=== PATIENT | male | born 1960 | race Caucasian/White ===

== ENCOUNTER 2019-06-04 21:48 | Emergency (ER) | payer OTHER ==
[~2019-06-04] VITALS: Ht 187.9 cm; Wt 81.8 kg
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
[2019-06-04] MEDS ORDERED: IBUPROFEN 800 MG (MOTRIN) TAB PO STA (22:13)
[2019-06-04] MEDS ORDERED: IBUP-1780 PO (22:44)
[2019-06-04 22:46] VITALS: BP 156/68
--- NOTE | 2019-06-05 05:45 | Diagnostic Imaging Report ---
EXAMINATION: Right shoulder at 1001 PM INDICATION: Shoulder pain Three views were obtained. There are no prior studies available for comparison. There is no fracture, dislocation or acute bony abnormality evident. There is moderate degenerative disease of the glenohumeral and acromioclavicular joints. The soft tissues are unremarkable. Incidental note is made of healed displaced fractures of the right 5th and 6th ribs. IMPRESSION: There is no evidence for an acute bony abnormality. Dictated by: Dictated on workstation # [id number]
== END 2019-06-04 22:46 | disposition home or self-care (01) ==
LOC: ER FS 21:50
DX: S46.911A Strain of unspecified muscle, fascia and tendon at shoulder and upper arm level, right arm, initial encounter (principal); G89.29 Other chronic pain; Z87.828 Personal history of other (healed) physical injury and trauma; X58.XXXA Exposure to other specified factors, initial encounter
CPT/HCPCS: 73030

== ENCOUNTER 2019-06-19 21:20 | Emergency (ER) | payer OTHER ==
[~2019-06-19] VITALS: Ht 190.5 cm; Wt 77.0 kg
[~2019-06-19 21:20] MED LIST: IBUP-1780 PO
[2019-06-19] MEDS ORDERED: FAMOTIDINE 20MG/2ML IV (PEPCID) IV STA (21:40)
[2019-06-19] MEDS ORDERED: LIDOCAINE 2% VISCOUS 15 ML UDC PO ONE (21:45)
[2019-06-19] MEDS ORDERED: ONDANSETRON 4 MG/2 ML (SDV) Z0FRAN IVP ONE (21:45)
[2019-06-19] MEDS ORDERED: ANTACID SUSP 30 ML UDC (MYLANTA) PO ONE (21:45)
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
[2019-06-19 21:58] LABS: BASOPHILS % (AUTO) 0 % (0-10); EOSINOPHILS % (AUTO) 2 % (0-10); HEMATOCRIT 44 % (40-54); HEMOGLOBIN 14.3 G/DL (13.3-17.7); LYMPHOCYTES % (AUTO) 16 % (12-44); MEAN CORPUSCULAR HEMOGLOBIN 29 PG (25-34); MEAN CORPUSCULAR HGB CONC 33 G/DL (32-36); MEAN CORPUSCULAR VOLUME 90 FL (80-99); MEAN PLATELET VOLUME 10.5 FL (7.4-10.4); MONOCYTES % (AUTO) 7 % (0-12); NEUTROPHILS % (AUTO) 74 % (42-75); PLATELET COUNT 320 10^3/uL (130-400); WHITE BLOOD COUNT 10.4 10^3/uL (4.3-11.0)
[2019-06-19 21:59] LABS: EOSINOPHILS # (AUTO) 0.2 10^3/uL (0.0-0.3); LYMPHOCYTES # (AUTO) 1.7 X 10^3 (1.0-4.0); MONOCYTES # (AUTO) 0.8 X 10^3 (0.0-1.0); NEUTROPHILS # (AUTO) 7.7 X 10^3 (1.8-7.8)
[2019-06-19 22:11] LABS: BACTERIA,URINE NEGATIVE /HPF; BILIRUBIN,URINE NEGATIVE (NEGATIVE); CLARITY,URINE CLEAR; COLOR,URINE YELLOW; GLUCOSE, URINE (UA) NEGATIVE (NEGATIVE); KETONES,URINE NEGATIVE (NEGATIVE); LEUKOCYTE ESTERASE ,URINE NEGATIVE (NEGATIVE); NITRITE,URINE NEGATIVE (NEGATIVE); PH,URINE 7.5 (5-9); PROTEIN,URINE NEGATIVE (NEGATIVE)
[2019-06-19 22:12] LABS: BILIRUBIN,TOTAL 0.3 MG/DL (0.1-1.0); CALCIUM 9.6 MG/DL (8.5-10.1); CARBON DIOXIDE 28 MMOL/L (21-32); CHLORIDE 104 MMOL/L (98-107); GLUCOSE 118 MG/DL (70-105); POTASSIUM 4.7 MMOL/L (3.6-5.0); SODIUM 144 MMOL/L (135-145); TOTAL PROTEIN 7.4 GM/DL (6.4-8.2)
[2019-06-19 22:13] LABS: BUN/CREATININE RATIO 16; CREATININE SERUM 0.86 MG/DL (0.60-1.30); GFR ESTIMATED > 60
[2019-06-19 22:14] LABS: ALANINE AMINOTRANSFERASE 22 U/L (0-55); ALBUMIN 4.4 GM/DL (3.2-4.5); ALKALINE PHOSPHATASE 92 U/L (40-136); LIPASE 40 U/L (8-78)
[2019-06-19] MEDS ORDERED: ONDA4TAB11 PO (22:27)
[2019-06-19] MEDS ORDERED: SUCR1TAB36 PO (22:27)
[2019-06-19] MEDS ORDERED: OMEP40CA36 PO (22:27)
[2019-06-19] MEDS ORDERED: KETOROLAC 30 MG/ML VIAL IVP ONE (22:30)
[2019-06-19 22:36] VITALS: BP 151/80
== END 2019-06-19 22:36 ==
LOC: EDUNIT# 21:20 → ER FS 21:21
DX: K29.70 Gastritis, unspecified, without bleeding (principal); J43.9 Emphysema, unspecified; F17.210 Nicotine dependence, cigarettes, uncomplicated
CPT/HCPCS: 36415; 80053; 81000; 83690; 85025

== ENCOUNTER 2019-07-08 02:54 | Emergency (ER) | payer MEDICAID, OTHER ==
[~2019-07-08] VITALS: Ht 190 cm; Wt 76.3 kg
[~2019-07-08 02:54] MED LIST changes: +OMEP40CA36 PO; +ONDA4TAB11 PO; +SUCR1TAB36 PO
[2019-07-08] MEDS ORDERED: KETOROLAC 60 MG/2 ML VIAL IM ONE (03:15)
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
[2019-07-08] MEDS ORDERED: RT-ALBUINH INH (03:42)
[2019-07-08] MEDS ORDERED: CYCL10TA9 PO (03:42)
[2019-07-08] MEDS ORDERED: HYDR-4226 PO (03:42)
[2019-07-08 03:52] VITALS: BP 130/88
--- NOTE | 2019-07-08 07:38 | Diagnostic Imaging Report ---
INDICATION: Pain. COMPARISON: None available. TECHNIQUE: 5 radiographs of the thoracic spine dated 07/08/2019. FINDINGS: Postsurgical changes are noted about the thoracolumbar junction with bilateral posterior pedicle screws in place without evidence of hardware complication. Chronic compression within the lower thoracic spine is noted, which is being spanned by the postsurgical changes. Vertebral body heights are otherwise well-maintained. Alignment of the thoracic spine is well maintained. Mild multilevel disc space height loss without severe disc space height loss. Mild degenerative changes noted within the partially visualized cervical spine. No acute fracture. No suspicious radiopaque foreign body. IMPRESSION: Postsurgical changes about the thoracolumbar junction fusing a chronically compressed vertebral body without evidence of hardware complication. No acute osseous abnormality with mild degenerative changes. Dictated by: Dictated on workstation # [id number]
== END 2019-07-08 03:52 | disposition home or self-care (01) ==
LOC: EDUNIT# 02:54 → ER FS 02:56
DX: M54.6 Pain in thoracic spine (principal); J43.9 Emphysema, unspecified; Z87.828 Personal history of other (healed) physical injury and trauma; Z98.890 Other specified postprocedural states; Z77.22 Contact with and (suspected) exposure to environmental tobacco smoke (acute) (chronic); X50.0XXA Overexertion from strenuous movement or load, initial encounter
CPT/HCPCS: 72072

== ENCOUNTER 2020-04-18 14:04 | Emergency (ER) | payer SELFPAY ==
[~2020-04-18 14:04] MED LIST changes: +CYCL10TA9 PO; +HYDR-4226 PO; +OMEP40CA27 PO; -OMEP40CA36 PO; +RT-ALBUINH INH
[2020-04-18] MEDS ORDERED: TETRACAINE 0.5% OPHTH SOLN 4 ML BTL (SINGLE DOSE ONLY) ONE (14:17)
== END 2020-04-18 14:32 | disposition home or self-care (01) ==
LOC: EDUNIT# 14:04 → ER FS 14:05
DX: T15.02XA Foreign body in cornea, left eye, initial encounter (principal); X58.XXXA Exposure to other specified factors, initial encounter
CPT/HCPCS: 99283

== ENCOUNTER 2020-09-20 20:55 | Emergency (ER) | payer SELFPAY ==
[~2020-09-20] VITALS: Ht 187.9 cm; Wt 75.2 kg
[2020-09-20] MEDS ORDERED: RX-ALBUTEROL INHALER (VENTOLIN HFA) 18 GM IH PRN (21:15)
[2020-09-20] MEDS ORDERED: RT-ALBUINH INH (21:20)
[2020-09-20] MEDS ORDERED: PRD20T PO (21:20)
--- NOTE | 2020-09-20 21:20 | ED Respiratory ---
General Chief Complaint: Respiratory Problems Stated Complaint: SOA Source: patient History of Present Illness Date Seen by Provider: Sep 20, 2020 Time Seen by Provider: 20:57 Initial Comments 60 yo male presenting with cough and shortness of breath. He reports he has a history of COPD and emphysema. He has not had an inhaler for over 6 months. He denies any fever or chills. He has no color to the mucus he is coughing up now. He denies coughing up more sputum than usual. He came in because he was having more shortness of breath than usual and describes increased sinus drainage. He continues to smoke at least 1/2 ppd. Timing/Duration: intermittent Severity: moderate Prior Episodes/Possible Cause: chronic episodes Modifying Factors: Improves With Albuterol Inhaler; Worse With Lying Down Associated Symptoms: No chest pain/soreness; cough; No dizziness, No earache, No facial pain, No fever/chills, No headache, No lightheadedness, No muscle aches; nasal congestion; No nasal drainage; shortness of breath; No sinus infection, No sore throat; wheezing Allergies and Home Medications Allergies Coded Allergies: No Known Drug Allergies (Unverified , 06/04/19) Home Medications Albuterol Sulfate 1 Puff Puff, 2 PUFF INH Q4H 1 PUFF = 90 MCG Prescribed by: VALENTIN CAMPOS on 07/08/19341 Albuterol Sulfate 1 Puff Puff, 2 PUFF INH Q6H PRN for WHEEZING 1 PUFF = 90 MCG Prescribed by: LELO ARORA on 09/20/202119 Cyclobenzaprine HCl 10 Mg Tablet, 10 MG PO Q6H Prescribed by: VALENTIN CAMPOS on 07/08/19341 Hydrocodone/Acetaminophen 1 Each Tablet, 1 TAB PO Q4-6HR Prescribed by: VALENTIN CAMPOS on 07/08/19341 Ibuprofen 800 Mg Tablet, 800 MG PO Q8H PRN for PAIN Prescribed by: LELO ARORA on 06/04/192243 Omeprazole 40 Mg Capsule.dr, 40 MG PO DAILY Prescribed by: POLI LUDWIG on 06/19/192226 Ondansetron 4 Mg Tab.rapdis, 4 MG PO Q6H PRN for NAUSEA/VOMITING Prescribed by: POLI LUDWIG on 10/20/19 2227 Prednisone 20 Mg Tab, 40 MG PO DAILY Prescribed by: LELO ARORA on 09/20/202119 Sucralfate 1 Gm Tablet, 1 GM PO QIDACHS Prescribed by: POLI LUDWIG on 06/19/192226 Patient Home Medication List Home Medication List Reviewed: Yes Review of Systems Review of Systems Constitutional: No chills, No fever EENTM: see HPI Respiratory: see HPI Cardiovascular: no symptoms reported Gastrointestinal: no symptoms reported Genitourinary: no symptoms reported Skin: no symptoms reported Psychiatric/Neurological: No Symptoms Reported Hematologic/Lymphatic: No Symptoms Reported Past Dnzsggr-Wrbred-Kdxmwk Hx Past Med/Social Hx: Reviewed Nursing Past Med/Soc Hx Patient Social History Drug of Choice: marijuana, METH Type Used: Cigarettes 2nd Hand Smoke Exposure: Yes Recent Hopitalizations: No Seasonal Allergies Seasonal Allergies: No Past Medical History Surgeries: Yes (BACK SURGERY 2 YEARS AGO) Orthopedic Respiratory: Yes Emphysema Cardiac: No Neurological: No Genitourinary: No Gastrointestinal: No Musculoskeletal: Yes Chronic Back Pain Endocrine: No HEENT: No Cancer: No Psychosocial: No Integumentary: No Blood Disorders: No Physical Exam Vital Signs - First Documented 09/20/20 20:55 Temp 36.9 Pulse 88 Resp 24 B/P (MAP) 143/79 (100) Pulse Ox 97 O2 Delivery Room Air Capillary Refill : Height: '" Weight: lbs. oz. kg; 21.00 BMI Method: General Appearance: WD/WN, no apparent distress HEENT: PERRL/EOMI, pharynx normal Neck: non-tender, supple Respiratory: chest non-tender, no respiratory distress, no accessory muscle use, decreased breath sounds, wheezing (expiratory wheezing and prolonged expirations) Cardiovascular: normal peripheral pulses, regular rate, rhythm Neurologic/Psychiatric: alert, normal mood/affect, oriented x 3 Skin: normal color, warm/dry Progress/Results/Core Measures Suspected Sepsis SIRS Temperature: Pulse: Respiratory Rate: Blood Pressure / Mean: Results/Orders My Orders Orders - LELO ARORA MD Rx-Albuterol Inhaler (Rx-Ventolin Hfa) (09/20/20 21:15) Vital Signs/I&O 09/20/20 09/20/20 20:55 21:38 Temp 36.9 36.9 Pulse 88 84 Resp 24 24 B/P (MAP) 143/79 (100) 91/61 (100) Pulse Ox 97 97 O2 Delivery Room Air Room Air Capillary Refill : Progress Note : Progress Note with no fever, increased color or mucus production and oxygen saturations in 96- 98% range will refill albuterol and give steroid burst to treat for copd exacerbation. Give him a spacer to use with inhaler and education on that. Encouraged to quit smoking. Departure Impression Primary Impression: COPD with exacerbation Additional Impression: Tobacco abuse Disposition: 01 HOME, SELF-CARE Condition: Stable Departure-Patient Inst. Decision time for Depature: 21:20 Referrals: OLENA PEREZ MD (PCP/Family) Primary Care Physician Patient Instructions: COPD Exacerbation, Adult ED, How to Use Your Metered Dose Inhaler (Adults), How to Use a Spacer, Quitting Smoking, SMOKING CESSATION Add. Discharge Instructions: Use inhaler with spacer 2 puffs every 6 hours as needed for shortness of breath/wheezing. Take the steroids to help with cough and congestion. Quit smoking and using tobacco Follow up with clinic to continue getting help with medicine and refills of medicine for COPD/Emphysema All discharge instructions reviewed with patient and/or family. Voiced understanding. Scripts Prednisone (Prednisone) 20 Mg Tab 40 MG PO DAILY for COPD Exacerbation for 5 Days, #10 TAB 0 Refills Prov: LELO ARORA MD 09/20/20 Albuterol Sulfate (VENTOLIN HFA) 1 Puff Puff 2 PUFF INH Q6H PRN for WHEEZING for 30 Days, #1 INHALER 0 Refills 1 PUFF = 90 MCG Prov: LELO ARORA MD 09/20/20 LELO ARORA MD Sep 20, 2020 21:20
[2020-09-20 21:38] VITALS: BP 91/61
== END 2020-09-20 21:38 | disposition home or self-care (01) ==
LOC: EDUNIT# 20:55 → ER FS 20:56
DX: J44.1 Chronic obstructive pulmonary disease with (acute) exacerbation (principal); G89.29 Other chronic pain; M54.9 Dorsalgia, unspecified; F17.200 Nicotine dependence, unspecified, uncomplicated; Z79.52 Long term (current) use of systemic steroids; Z79.891 Long term (current) use of opiate analgesic
CPT/HCPCS: 99283

== ENCOUNTER 2021-04-23 00:13 | Emergency (ER) | payer MEDICAID ==
[~2021-04-23] VITALS: Ht 190.5 cm; Wt 81.6 kg
[~2021-04-23 00:13] MED LIST changes: -OMEP40CA27 PO; +OMEP40CA6 PO; +PRD20T PO
[2021-04-23] MEDS ORDERED: IBUPROFEN 600 MG (MOTRIN) TAB PO ONE (00:30)
[2021-04-23] MEDS ORDERED: ACETAMINOPHEN 500 MG TAB (TYLENOL) PO ONE (00:30)
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
[2021-04-23 01:34] VITALS: BP 137/81
--- NOTE | 2021-04-23 06:50 | Diagnostic Imaging Report ---
PROCEDURE: CT thoracic and lumbar spine without contrast. TECHNIQUE: Multiple contiguous axial images were obtained through the thoracic and lumbar spine without the use of intravenous contrast. Sagittal and coronal reformations were then performed. All CT scans use one or more of the following dose optimizing techniques: automated exposure control, MA and/or KvP adjustment based on a patient size and exam type, or iterative reconstruction. INDICATION: Fall with back pain There is chronic compression fracture deformity at T12 with posterior decompression and bilateral pedicle screws at the adjacent T10, T12, L1-L2 levels with posterior fusion. Overall alignment is unremarkable. There is no evidence of an acute fracture. No paraspinous hematoma is identified. There is mild diffuse spondylosis. IMPRESSION: Old T12 fracture with posterior fusion from T10 through L2. Otherwise, there is no evidence of acute traumatic abnormality in the thoracic or lumbar spine. Dictated by: Dictated on workstation # [id number]
== END 2021-04-23 01:36 | disposition home or self-care (01) ==
LOC: EDUNIT# 00:13 → ER FS 00:15
DX: G89.29 Other chronic pain (principal); M54.6 Pain in thoracic spine; J43.9 Emphysema, unspecified; Z79.891 Long term (current) use of opiate analgesic; Z79.899 Other long term (current) drug therapy; Z79.52 Long term (current) use of systemic steroids
CPT/HCPCS: 72128; 72131

== ENCOUNTER 2021-06-25 10:03 | Emergency (ER) | payer MEDICAID ==
[~2021-06-25] VITALS: Ht 190.5 cm; Wt 75.8 kg
--- NOTE | 2021-06-25 10:40 | Diagnostic Imaging Report ---
INDICATION: Pain, trauma COMPARISON: None available. TECHNIQUE: 3 radiographs of the right elbow dated 06/25/2021 FINDINGS: No acute fracture or dislocation. No destructive osseous process. Joint spaces are well maintained. No joint effusion. No suspicious radiopaque foreign body. IMPRESSION: No acute osseous abnormality. Dictated by: Dictated on workstation # [id number]
--- NOTE | 2021-06-25 10:49 | ED Upper Extremity ---
General Chief Complaint: Upper Extremity Stated Complaint: RT ELBOW PAIN Nursing Triage Note: PT AMBULATE TO ROOM FS02 WITH C/O RIGHT ELBOW PAIN X4 DAYS. PT REPORTS HE BUMPED HIS RIGHT ELBOW IN HIS GARAGE X4 DAYS AGO AND FELT A "STING" AND IT IS "JUST NOT GETTING BETTER". Source: patient History of Present Illness Date Seen by Provider: Jun 25, 2021 Time Seen by Provider: 10:15 Initial Comments Patient is a 52-year-old right-handed male presents with right lateral elbow pain after striking it 4 days ago while working on his car. Patient reports lateral epicondyle pain with with palpation movement use. No other symptoms or complaints. No motor weakness or loss of sensations Severity: mild Pain/Injury Location: right elbow Method of Injury: direct blow Modifying Factors: Improves With Other Allergies and Home Medications Allergies Coded Allergies: No Known Drug Allergies (Unverified , 06/04/19) Patient Home Medication List Home Medication List Reviewed: Yes Albuterol Sulfate (Ventolin Hfa) 1 Puff Puff, 2 PUFF INH Q4H Prescribed by: VALENTIN CAMPOS on 07/08/19341 Albuterol Sulfate (Ventolin Hfa) 1 Puff Puff, 2 PUFF INH Q6H PRN for WHEEZING Prescribed by: LELO ARORA on 09/20/202119 Cyclobenzaprine HCl (Cyclobenzaprine HCl) 10 Mg Tablet, 10 MG PO Q6H Prescribed by: VALENTIN CAMPOS on 07/08/19341 Hydrocodone/Acetaminophen (Hydrocodone/Acetaminophen 5 MG/325 MG TAB) 1 Each Tablet, 1 TAB PO Q4-6HR Prescribed by: VALENTIN CAMPOS on 07/08/19341 Ibuprofen (Ibuprofen) 800 Mg Tablet, 800 MG PO Q8H PRN for PAIN Prescribed by: LELO ARORA on 06/04/192243 Omeprazole (Omeprazole) 40 Mg Capsule.dr, 40 MG PO DAILY Prescribed by: POLI LUDWIG on 06/19/192226 Ondansetron (Ondansetron Odt) 4 Mg Tab.rapdis, 4 MG PO Q6H PRN for NAUSEA/VOMITING Prescribed by: POLI LUDWIG on 06/19/192226 Prednisone (Prednisone) 20 Mg Tab, 40 MG PO DAILY Prescribed by: LELO ARORA on 09/20/202119 Sucralfate (Carafate) 1 Gm Tablet, 1 GM PO QIDACHS Prescribed by: POLI LUDWIG on 06/19/192226 Review of Systems Constitutional: see HPI Musculoskeletal: joint pain Past Vsnfmic-Emayur-Ptvpdt Hx Patient Social History Tobacco Use?: Yes Tobacco type used: Cigarettes Smoking Status: Current Everyday Smoker Smokeless Tobacco Frequency: Never a User Use of E-Cig and/or Vaping Fabio: Never a User Substance use?: Yes Substance type: Marijuana Alcohol Use?: Yes Alcohol Frequency: Once in a while Pt feels they are or have been: No Seasonal Allergies Seasonal Allergies: No Past Medical History Surgeries: Yes (BACK SURGERY 2 YEARS AGO) Orthopedic Respiratory: Yes Emphysema Cardiac: No Neurological: No Genitourinary: No Gastrointestinal: No Musculoskeletal: Yes Arthritis, Chronic Back Pain Endocrine: No HEENT: No Cancer: No Psychosocial: No Integumentary: No Blood Disorders: No Physical Exam Vital Signs Vital Signs - First Documented 06/25/21 10:10 Temp 36.3 Pulse 80 Resp 16 B/P (MAP) 148/87 (107) O2 Delivery Room Air Capillary Refill : Less Than 3 Seconds Height, Weight, BMI Height: '" Weight: lbs. oz. kg; 20.00 BMI Method: General Appearance: WD/WN, no apparent distress Elbow/Forearm: Right, limited ROM, soft tissue tenderness (Lateral epicondyle pain), swelling Progress/Results/Core Measures Results/Orders My Orders Orders - HE LAZAR DO Elbow 3 View Right (06/25/21 10:17) Vital Signs/I&O 06/25/21 10:10 Temp 36.3 Pulse 80 Resp 16 B/P (MAP) 148/87 (107) O2 Delivery Room Air Blood Pressure Mean: 107 Departure Communication (Admissions) Right elbow x-ray: No bony abnormality per radiology report Impression Primary Impression: Lateral epicondylitis, right elbow Disposition: 01 HOME, SELF-CARE Condition: Stable Departure-Patient Inst. Decision time for Depature: 10:47 Referrals: OLENA PEREZ MD (PCP/Family) Primary Care Physician Patient Instructions: Lateral Epicondylitis Exercises Add. Discharge Instructions: An x-ray was performed and does not show an evidence pattern of fracture. Please take ibuprofen 3 times daily for pain apply ice for 20 to 30 minutes every 2-3 hours and limit right arm use. Follow-up with your PCP in 5 to 7 days if symptoms persist. All discharge instructions reviewed with patient and/or family. Voiced understanding. HE LAZAR DO Jun 25, 2021 10:49
[2021-06-25 10:57] VITALS: BP 144/82
== END 2021-06-25 10:57 | disposition home or self-care (01) ==
LOC: EDUNIT# 10:03 → ER FS 10:05
DX: M77.11 Lateral epicondylitis, right elbow (principal); J43.9 Emphysema, unspecified; G89.29 Other chronic pain; M54.9 Dorsalgia, unspecified; F17.210 Nicotine dependence, cigarettes, uncomplicated; Z79.891 Long term (current) use of opiate analgesic; Z79.52 Long term (current) use of systemic steroids
CPT/HCPCS: 73080

== ENCOUNTER 2022-05-02 13:58 | Emergency (ER) | payer MEDICAID ==
[~2022-05-02] VITALS: Ht 190.5 cm; Wt 67.0 kg
[~2022-05-02 13:58] MED LIST changes: +CYCL10TA25 PO; -CYCL10TA9 PO
[2022-05-02] MEDS ORDERED: TETRACAINE 0.5% OPHTH SOLN 4 ML BTL (SINGLE DOSE ONLY) ONE (14:05)
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
[2022-05-02] MEDS ORDERED: ERYT1OIN6 OP (14:13)
[2022-05-02] MEDS ORDERED: ACHD5005 PO (14:13)
[2022-05-02 14:19] VITALS: BP 141/93
== END 2022-05-02 14:19 | disposition home or self-care (01) ==
LOC: EDUNIT# 13:58 → ER FS 14:00
DX: H16.133 Photokeratitis, bilateral (principal); Z28.310 Unvaccinated for COVID-19
CPT/HCPCS: 99281

== ENCOUNTER 2022-05-18 19:34 | Emergency (ER) | payer MEDICAID ==
[~2022-05-18] VITALS: Ht 187.9 cm; Wt 68.4 kg
[~2022-05-18 19:34] MED LIST changes: +ACHD5005 PO; +ERYT1OIN6 OP
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
--- NOTE | 2022-05-18 20:33 | Diagnostic Imaging Report ---
HISTORY: Increasing pain for 2 days. EXAMINATION: Right hip, 05/18/2022. FINDINGS: 3 views of the right hip. Partially imaged right intramedullary yehuda appears intact, as visualized. Deformity of the proximal femur consistent with old fracture. No acute fracture or dislocation appreciated. Left hip intact. IMPRESSION: Chronic findings with no superimposed acute process. Dictated by: Dictated on workstation # [id number]
[2022-05-18] MEDS ORDERED: PRD20T PO (20:37)
[2022-05-18] MEDS ORDERED: ACHD5005 PO (20:37)
[2022-05-18] MEDS ORDERED: predniSONE 20 MG TAB PO STA (20:38)
[2022-05-18 20:47] VITALS: BP 117/97
== END 2022-05-18 20:47 | disposition home or self-care (01) ==
LOC: EDUNIT# 19:34 → ER FS 19:37
DX: M25.551 Pain in right hip (principal); F17.210 Nicotine dependence, cigarettes, uncomplicated; Z98.890 Other specified postprocedural states; Z28.310 Unvaccinated for COVID-19
CPT/HCPCS: 73502

== ENCOUNTER 2023-04-28 21:40 | Emergency (ER) | payer MEDICAID, OTHER ==
[~2023-04-28] VITALS: Ht 187.9 cm; Wt 81.6 kg
[2023-04-28 21:45] VITALS: BP 103/51
--- NOTE | 2023-04-28 21:53 | ED Back Pain ---
General Stated Complaint: BACK PAIN Source of Information: Patient, Police Exam Limitations: No Limitations History of Present Illness Date Seen by Provider: Apr 28, 2023 Time Seen by Provider: 21:35 Initial Comments 62-year-old male presents to the emergency department today in police custody. He apparently ran from the police and fell down several times while he was in a field running. He states he has pain in his mid back though he initially told the police that he had ankle pain. He states he has a history of compression fracture at T12 status post surgery several years ago. He believes he exacerbat ed the injury running from police today. He has numbness in his bilateral feet which is normal for him. No loss of bowel or bladder control. He has been ambulatory since the event. All other systems reviewed and negative except documented per HPI. Voice recognition software was used to help create this chart Allergies and Home Medications Allergies Coded Allergies: No Known Drug Allergies (Unverified , 06/04/19) Patient Home Medication List Home Medication List Reviewed: Yes Albuterol Sulfate (Ventolin Hfa) 1 Puff Puff, 2 PUFF INH Q4H Prescribed by: VALENTIN CAMPOS on 07/08/19 034 Albuterol Sulfate (Ventolin Hfa) 1 Puff Puff, 2 PUFF INH Q6H PRN for WHEEZING Prescribed by: LELO ARORA on 09/20/202119 Hydrocodone/Acetaminophen (Hydrocodone-Acetamin 5-325 mg) 5 Mg-325 Mg Tablet, 1 TAB PO Q6H PRN for PAIN-SEVERE (8-10) Prescribed by: LELO ARORA on 05/18/222037 Prednisone (Prednisone) 20 Mg Tab, 40 MG PO DAILY Prescribed by: LELO ARORA on 05/18/222036 Review of Systems Constitutional: see HPI Past Ywdlcjz-Csynvj-Veiqjt Hx Patient Social History Tobacco Use?: Yes Use of E-Cig and/or Vaping dev: No Substance use?: Yes Substance type: Marijuana Alcohol Use?: No Immunizations Up To Date First/Initial COVID19 Vaccinat: Not currently vaccinated Second COVID19 Vaccination Santiago: Not currently vaccinated Third COVID19 Vaccination Date: Not currently vaccinated Seasonal Allergies Seasonal Allergies: No Past Medical History Surgery/Hospitalization HX: Emphysema, Back surgery, Right hip surgery, Right femur fracture with surgery Surgeries: Yes (BACK SURGERY 2 YEARS AGO) Orthopedic Respiratory: Yes Emphysema Cardiac: No Neurological: No Genitourinary: No Gastrointestinal: No Musculoskeletal: Yes Arthritis, Chronic Back Pain Endocrine: No HEENT: No Cancer: No Psychosocial: No Integumentary: No Blood Disorders: No Physical Exam Vital Signs Capillary Refill : Height, Weight, BMI Height: '" Weight: lbs. oz. kg; 19.00 BMI Method: General Appearance: No Apparent Distress, WD/WN HEENT: PERRL/EOMI, Normal ENT Inspection, Pharynx Normal Neck: Normal Inspection, Non Tender, Supple Cardiovascular: Regular Rate, Rhythm, No Murmur, Normal Peripheral Pulses Respiratory: Chest Non Tender, Lungs Clear, Normal Breath Sounds, No Accessory Muscle Use Gastrointestinal: Normal Bowel Sounds, No Organomegaly, Non Tender, Soft Back: Normal Inspection, No CVA Tenderness, Vertebral Tenderness (Tenderness palpation lower thoracic spine. No step-offs or deformity.) Extremity: Other (Small abrasions to his forearms and bilateral anterior shins.) Neurologic/Psychiatric: Alert, Oriented x3 Skin: Normal Color Departure Communication (Admissions) Patient is hemodynamically stable. He is neurovascular and sensory intact. He has midline tenderness in his thoracic spine after acute injury this evening. He has chronic pain in that area but believes it is exacerbated after falling down in the field several times. CT scan is negative. I have independently reviewed the images. Impression Primary Impression: Thoracic back pain Qualified Codes: M54.6 - Pain in thoracic spine Disposition: HOME, SELF-CARE Condition: Stable Departure-Patient Inst. Referrals: OLENA PEREZ MD (PCP/Family) Primary Care Physician Patient Instructions: Acute Pain, Adult Add. Discharge Instructions: Your CT scan is normal. Use ibuprofen and Tylenol as needed for pain. Return to the emergency department for any severe concerns. Follow-up with your primary doctor for any nonemergent needs JANEL MARTIN DO Apr 28, 2023 21:53
[2023-04-28] MEDS ORDERED: ACETAMINOPHEN 500 MG TABLET PO ONE (22:30)
--- NOTE | 2023-04-29 07:02 | Diagnostic Imaging Report ---
PROCEDURE: CT thoracic spine without contrast. TECHNIQUE: Multiple axial computerized tomography images were obtained from the base of the thoracic spine to the vertex without intravenous contrast. Auto Exposure Controls were utilized during the CT exam to meet ALARA standards for radiation dose reduction. INDICATION: Back pain after fall FINDINGS: There is a remote T12 compression fracture. There has been posterior lumbar instrumentation at T10-T11, L1 and L2 with bilateral pedicle screws and rods. The alignment of thoracic spine is otherwise normal. There is no acute fracture or traumatic subluxation. There are diffuse degenerative changes. No bony encroachment upon spinal canal. The visualized lungs are clear. Visualized intra-abdominal structures are unremarkable. IMPRESSION: Post surgical degenerative changes in the thoracic spine without acute fracture traumatic subluxation. Dictated by: Dictated on workstation # [id number]
== END 2023-04-28 22:34 | disposition home or self-care (01) ==
LOC: ER FS 21:40 → EDUNIT# 21:46 → ER FS 22:34
DX: M54.6 Pain in thoracic spine (principal); Z87.828 Personal history of other (healed) physical injury and trauma; Z28.310 Unvaccinated for COVID-19; W18.30XA Fall on same level, unspecified, initial encounter; Y93.02 Activity, running
CPT/HCPCS: 72128

== ENCOUNTER 2023-06-05 12:08 | Emergency (ER) | payer MEDICAID ==
[~2023-06-05] VITALS: Ht 187.9 cm; Wt 81.6 kg
[2023-06-05] MEDS ORDERED: RT-Ipratropium/Albuterol NEB 3 ML VIAL INH ONE (12:30)
[2023-06-05] MEDS ORDERED: predniSONE 20 MG TABLET PO ONE (12:30)
--- NOTE | 2023-06-05 12:30 | ED Cough/URI ---
General Chief Complaint: Cough/Cold/Flu Symptoms Stated Complaint: BODY ACHES | COUGH | FLU-LIKE SYMPTOMS Source: patient Exam Limitations: no limitations History of Present Illness Date Seen by Provider: Jun 05, 2023 Time Seen by Provider: 12:19 Initial Comments 62-year-old male presents to the emergency department today for cough, body aches and headache. Symptoms started on Thursday and have been persistent since that time. He has known COPD and has been using a nebulizer treatment at home with some intermittent relief. He has not taken his temperature but does believe that he has had fevers. No known sick contacts. He does not wear oxygen. No chest pain. All other systems reviewed and negative except documented per HPI. Voice recognition software was used to help create this chart Allergies and Home Medications Allergies Coded Allergies: No Known Drug Allergies (Unverified , 06/04/19) Patient Home Medication List Home Medication List Reviewed: Yes Albuterol Sulfate (Ventolin Hfa) 1 Puff Puff, 2 PUFF INH Q4H Prescribed by: VALENTIN CAMPOS on 07/08/19 034 Albuterol Sulfate (Ventolin Hfa) 1 Puff Puff, 2 PUFF INH Q6H PRN for WHEEZING Prescribed by: LELO ARORA on 09/20/202119 Albuterol Sulfate (Ventolin Hfa) 1 Puff Puff, 2 PUFF INH Q4H Prescribed by: JANEL MARTIN MD on 06/05/23 1353 Last Action: New Order Hydrocodone/Acetaminophen (Hydrocodone-Acetamin 5-325 mg) 5 Mg-325 Mg Tablet, 1 TAB PO Q6H PRN for PAIN-SEVERE (8-10) Prescribed by: LELO ARORA on 05/18/222037 Prednisone (Prednisone) 20 Mg Tab, 40 MG PO DAILY Prescribed by: LELO ARORA on 05/18/222036 Prednisone (Prednisone) 50 Mg Tab, 50 MG PO DAILY Prescribed by: JANEL MARTIN MD on 06/05/23 1350 Review of Systems Review of Systems Constitutional: see HPI Past Ahvncxp-Qojpdf-Bhzznp Hx Patient Social History Tobacco Use?: Yes Tobacco type used: Cigarettes Smoking Status: Current Everyday Smoker Use of E-Cig and/or Vaping dev: No Substance use?: No Alcohol Use?: Yes Alcohol Frequency: Once in a while Pt feels they are or have been: No Immunizations Up To Date First/Initial COVID19 Vaccinat: Not currently vaccinated Second COVID19 Vaccination Santiago: Not currently vaccinated Third COVID19 Vaccination Date: Not currently vaccinated Seasonal Allergies Seasonal Allergies: No Past Medical History Surgery/Hospitalization HX: Emphysema, Back surgery, Right hip surgery, Right femur fracture with surgery Surgeries: Yes (BACK SURGERY 2 YEARS AGO) Orthopedic Respiratory: Yes Emphysema Cardiac: No Neurological: No Genitourinary: No Gastrointestinal: No Musculoskeletal: Yes Arthritis, Chronic Back Pain Endocrine: No HEENT: No Cancer: No Psychosocial: No Integumentary: No Blood Disorders: No Physical Exam Vital Signs - First Documented 06/05/23 12:18 Temp 36.2 Pulse 84 Resp 16 B/P (MAP) 166/93 (117) Pulse Ox 94 O2 Delivery Room Air Capillary Refill : Height: '" Weight: lbs. oz. kg; 23.00 BMI Method: General Appearance: WD/WN, no apparent distress HEENT: normal ENT inspection, pharynx normal Neck: supple, normal inspection Respiratory: chest non-tender, other (Is for an x-ray wheezes bilaterally. No mundo distress or retractions.) Cardiovascular: regular rate, rhythm, no murmur Gastrointestinal: normal bowel sounds, non tender, soft, no organomegaly Extremities: non-tender, normal inspection, no pedal edema, normal capillary refill Neurologic/Psychiatric: alert, oriented x 3 Skin: normal color, warm/dry Progress/Results/Core Measures Suspected Sepsis SIRS Temperature: Pulse: Respiratory Rate: Blood Pressure / Mean: Results/Orders Lab Results Laboratory Tests Test 06/05/23 13:09 Range/Units SARS-CoV-2 RNA (RT-PCR) Not Detected Not Detecte My Orders Orders - JANEL MARTIN DO Ipratropium/Albuterol Inh Soln (Ipratrop (06/05/23 12:30) Prednisone Tablet (Prednisone Tablet) (06/05/23 12:30) Svn Small Volume Nebulizer (06/05/23 12:27) Chest 1 View, Ap/Pa Only (06/05/23 12:27) Covid 19 Inhouse Test (06/05/23 12:58) Medications Given in ED Current Medications Medications Dose Ordered Sig/Anamika Route Start Time Stop Time Status Last Admin Dose Admin Albuterol/ Ipratropium 3 ml ONCE ONCE INH 06/05/23 12:30 06/05/23 12:31 DC 06/05/23 12:47 3 ML Prednisone 50 mg ONCE ONCE PO 06/05/23 12:30 06/05/23 12:31 DC 06/05/23 13:56 50 MG Vital Signs/I&O 06/05/23 06/05/23 06/05/23 12:18 12:49 13:58 Temp 36.2 36.2 Pulse 84 84 Resp 16 16 B/P (MAP) 166/93 (117) 158/89 Pulse Ox 94 95 95 O2 Delivery Room Air Room Air Capillary Refill : Departure Communication (Admissions) Patient with significant wheezing however he has normal oxygen saturation, heart rate and blood pressure. COVID test is negative. Chest x-ray is clear on my independent review. He is given a DuoNeb, p.o. steroids here and discharged with steroids and an albuterol inhaler. He initially told me he had a nebulizer at home but it turns out he has been using his friend's nebulizer so we went ahead and gave him an albuterol inhaler. Impression Primary Impression: COPD with exacerbation Additional Impression: Upper respiratory infection Qualified Codes: J06.9 - Acute upper respiratory infection, unspecified Disposition: HOME, SELF-CARE Condition: Stable Departure-Patient Inst. Referrals: OLENA PEREZ MD (PCP/Family) Primary Care Physician Patient Instructions: COPD Exacerbation, Adult ED, Viral Upper Respiratory Infection, Adult (DC) Add. Discharge Instructions: Please take the prednisone as prescribed. Continue your home breathing treatments as needed. Your COVID test here is negative. You likely have a virus causing an upper respiratory infection. Your fluids at home. Alternate ibuprofen and Tylenol as needed for body aches. Return to the emergency department for any severe concerns. All discharge instructions reviewed with patient and/or family. Voiced understanding. Scripts Albuterol Sulfate (VENTOLIN HFA) 1 Puff Puff 2 PUFF INH Q4H for Wheezing for 30 Days, #1 EA 1 PUFF = 90 MCG Prov: JANEL MARTIN DO 06/05/23 Prednisone (Prednisone) 50 Mg Tab 50 MG PO DAILY for 5 Days, #5 TAB Prov: JANEL MARTIN DO 06/05/23 JANEL MARTIN DO Jun 05, 2023 12:30
--- NOTE | 2023-06-05 13:07 | Diagnostic Imaging Report ---
HISTORY: Dyspnea, cough COMPARISON: None TECHNIQUE: Frontal view of the chest. FINDINGS: Lung volumes are large. No consolidation is seen. There is no pleural effusion or pneumothorax. The left costophrenic angle is incompletely seen on this exam. There is fusion hardware in the spine. There are old right-sided rib fractures. The cardiac silhouette is normal in size. IMPRESSION: 1. Large lung volumes with no acute pulmonary abnormality. Dictated by: Dictated on workstation # [id number]
[2023-06-05] MEDS ORDERED: PRD50T PO (13:50)
[2023-06-05] MEDS ORDERED: RT-ALBUINH INH (13:53)
[2023-06-05 13:58] VITALS: BP 158/89
== END 2023-06-05 13:58 | disposition home or self-care (01) ==
LOC: EDUNIT# 12:08 → ER 12:10
DX: J43.9 Emphysema, unspecified (principal); J06.9 Acute upper respiratory infection, unspecified; F17.210 Nicotine dependence, cigarettes, uncomplicated; Z20.822 Contact with and (suspected) exposure to COVID-19; Z28.310 Unvaccinated for COVID-19
CPT/HCPCS: 71045; 87636; 94640